=== PATIENT | female | born 1970 | race Caucasian/White ===

== ENCOUNTER 2018-12-01 09:44 | Day surgery (SDC) | payer OTHER ==
[2018-12-01] VITALS (8 sets, daily range): BP systolic 121–142; BP diastolic 75–87
[~2018-12-01] VITALS: Ht 165.1 cm; Wt 71.2 kg
[2018-12-01] MEDS ORDERED: LR 1000ml 1,000 ML IVLG SCH (10:19)
--- NOTE | 2018-12-01 10:21 | Anethesia Preoperative Eval ---
Anesthesia Pre-op PMH/ROS General Date of Evaluation: December 01, 2018 Time of Evaluation: 10:21 Anesthesiologist: comfort ASA Score: ASA 3 Mallampati Score Class I : Soft palate, uvula, fauces, pillars visible Class II: Soft palate, uvula, fauces visible Class III: Soft palate, base of uvula visible Class IV: Only hard plate visible Mallampati Classification: Class II Surgeon: jackson Diagnosis: gerd Surgical Procedure: egd Anesthesia History: none Social History: alcohol use Family History: no anesthesia problems Allergies: Coded Allergies: MORPHINE (Verified Allergy, Severe, NAUSEA, VOMITING, MIGRAINES, 12/01/18) Medications: see eMAR Patient NPO?: Yes Past Medical History Gastrointestinal/Genitourinary: Reports: GERD Neurologic/Psychiatric: Reports: depression/anxiety PSxH Narrative: hysterectomy, cholecystectomy Anesthesia Pre-op Phys. Exam Physician Exam Last Vital Signs Date Time Temp Pulse Resp B/P (MAP) Pulse Ox O2 Delivery O2 Flow Rate FiO2 12/01/18 10:24 Room Air 12/01/18 10:23 97.6 72 18 121/87 98 Constitutional: NAD Neurologic: CN 2-12 intact Cardiovascular: RRR Respiratory: CTA Gastrointestinal: S/NT/ND Airway Exam Mallampati Score: Class II MO: limited Neck: short TMD: 2fb ROM: limited Teeth: intact Anesthesia Pre-op A/P Risk Assessment & Plan Assessment: asa3 Plan: mac Status Change Before Surgery: No Pre-Antibiotics Drug: Mariah Child MD December 01, 2018 10:21
[2018-12-01] MEDS ORDERED: fentaNYL 100 mcg/2 mL IV PRN (10:30)
[2018-12-01] MEDS ORDERED: Atropine Inj 1mg/10ml Syr IV PRN (10:30)
[2018-12-01] MEDS ORDERED: Ketorolac 30mg Inj IV PRN (10:30)
[2018-12-01] MEDS ORDERED: Midazolam 2mg/2ml Inj IVP PRN (10:30)
[2018-12-01] MEDS ORDERED: DiphenhydrAMINE 50mg/ml Inj IVP PRN (10:30)
[2018-12-01] MEDS ORDERED: HYSINGLA ER20 MG PO (10:35)
[2018-12-01] MEDS ORDERED: CLARITIN10 M2 ORAL (10:35)
[2018-12-01] MEDS ORDERED: CYMBALTA60 MG ORAL (10:35)
[2018-12-01] MEDS ORDERED: ABILIFY30 MG ORAL (10:35)
[2018-12-01] MEDS ORDERED: BUPROPION XL450 MG PO (10:35)
[2018-12-01] MEDS ORDERED: ROBAXIN500 MG PO (10:35)
[2018-12-01] MEDS ORDERED: PEPCID AC20 M2 PO (10:35)
--- NOTE | 2018-12-01 11:55 | Short Stay Surgery H&P ---
History of Present Illness History of Present Illness Chief Complaint Abdominal pains/GERDs/Dysphagia HPI Ariadna Hope is a 48 year old female who was admitted on for GERDS/dysphagia/ abdominal mani Patient History Allergies: Coded Allergies: MORPHINE (Verified Allergy, Severe, NAUSEA, VOMITING, MIGRAINES, 12/01/18) PAST MEDICAL HISTORY: (1) Hypertension (2) History of cholecystectomy (3) H/O abdominal hysterectomy (4) Hx of bariatric surgery Medication History Scheduled Aripiprazole* (Abilify*), Unknown Dose ORAL DAILY, (Reported) Bupropion HCl (Bupropion Xl), 450 MG PO DAILY, (Reported) Duloxetine Hcl* (Cymbalta*), 60 MG ORAL DAILY, (Reported) Famotidine (Pepcid Ac), 20 MG PO BID, (Reported) Hydrocodone Bitartrate (Hysingla ER), Unknown Dose PO DAILY, (Reported) Loratadine (Claritin), 10 MG ORAL DAILY, (Reported) Methocarbamol* (Robaxin*), 500 MG PO BID, (Reported) Review of Systems Cardiovascular: Reports: hypertension Respiratory: Reports: no symptoms Skeletal: Reports: trauma Gastrointestinal: Reports: gastro esophageal reflux disease Genitourinary: Reports: no symptoms Neurologic: Reports: no symptoms Endocrine: Reports: no symptoms Hematologic: Reports: no symptoms Physical Exam Vital Signs Last Vital Signs Date Time Temp Pulse Resp B/P (MAP) Pulse Ox O2 Delivery O2 Flow Rate FiO2 12/01/18 10:24 Room Air 12/01/18 10:23 97.6 72 18 121/87 98 Skin: normal HENT: normal Heart: normal Lungs: normal Abdomen: abnormal Extremities: normal Genitourinary: normal Plan Plan of Care Upper GI. Endoscopy with biopsy Preop Interventions Nne. Summary of Findings See the reports Attestation Are the patient's medical conditions optimized for surgery? Attestation Response: yes Jose L Garduno MD December 01, 2018 11:55
--- NOTE | 2018-12-01 11:56 | Pre-Procedure Note/Attestation ---
Pre-Procedure Note/Attestation Complete Prior to Procedure Planned Procedure: left Procedure Narrative: Examination of the upper GI. tract via endoscopy Indications for Procedure Pre-Operative Diagnosis: R/O esophagitis/Gastritis/Peptic ulcers Attestation I attest that I discussed the nature of the procedure; its benefits; risks and complications; and alternatives (and the risks and benefits of such alternatives ), prior to the procedure, with the patient (or the patient's legal district sales representative). I attest that, if there was a reasonable possibility of needing a blood transfusion, the patient (or the patient's legal district sales representative) was given the [place] [employer] standardized written summary, pursuant to the Joe Arjun Blood Safety Act ([place] Health and Safety Code # 1645, as amended). I attest that I re-evaluated the patient just prior to the surgery and that there has been no change in the patient's H&P, except as documented below: Jose L Garduno MD December 01, 2018 11:56
[2018-12-01] MEDS ORDERED: LR 1000ml ONE (12:00)
[2018-12-01] MEDS ORDERED: Lidocaine 1% MPF 10mg/ml 5ml ONE (12:00)
[2018-12-01] MEDS ORDERED: Propofol 200mg/20ml IV ONE (12:00)
--- NOTE | 2018-12-01 12:31 | Endoscopy Procedure Note ---
Endoscopy Procedure Note General Indication for Procedure: Abdominal/epigastric pains/GERds/dysphagia Procedures Performed: EGD - Modrate size Hiatal Hernia with mild gastritis noted. biopsies taken from gastric body and antral area. Specimen: yes Pt Tolerated Procedure Well: Yes Anesthesia Anesthesiologist: Dr. Moreno Anesthesia: moderate sedation Medications Medication Given: see anesthesia record Inserted Devices Implant(s) used?: No Quality Quality of Bowel Preparation: Excellent Was there any complications?: No GI Core Measures 50 yrs or older w/o bx or poly: Not Applicable 10yrs. F/U recommended: Not Applicable If not recommended, why?: Med reason:<3 yrs.: System Reason:<3 yrs.: Jose L Garduno MD December 01, 2018 12:31
--- NOTE | 2018-12-01 12:32 | Discharge Instructions ---
Discharge Instructions Discharge Instructions Follow up with: Visit the docotor in office after 2 weeks For Congestive Heart Failure Reminder Report to your physician any weight gain of 5 pounds or more in one week. Jose L Garduno MD December 01, 2018 12:32
--- NOTE | 2018-12-01 13:07 | Immediate Post-Op Evaluation ---
Immediate Post-Op Evalulation Immediate Post-Op Evalulation Procedure: egd w/bx Date of Evaluation: December 01, 2018 Time of Evaluation: 12:54 IV Fluids: 150ml lr Blood Products: none Estimated Blood Loss: negligible Blood Pressure Systolic: 142 Blood Pressure Diastolic: 82 Pulse Rate: 76 Respiratory Rate: 18 O2 Sat by Pulse Oximetry: 100 Temperature (Fahrenheit): 97.5 Pain Score (1-10): 0 Nausea: No Vomiting: No Complications none Patient Status: awake, reacts, patent Hydration Status: adequate Drug: Mariah Child MD December 01, 2018 13:07
--- NOTE | 2018-12-01 13:10 | 48 Hour Post Anesthesia Eval ---
Post Anesthesia Evaluation Procedure: egd w/bx Date of Evaluation: December 01, 2018 Time of Evaluation: 12:56 Blood Pressure Systolic: 128 0: 79 Pulse Rate: 73 Respiratory Rate: 18 Temperature (Fahrenheit): 97.5 O2 Sat by Pulse Oximetry: 100 Airway: patent Nausea: No Vomiting: No Pain Intensity: 0 Hydration Status: adequate Cardiopulmonary Status: stable Mental Status/LOC: patient returned to baseline Post-Anesthesia Complications: none Follow-up care needed: N/A Mariah Moreno MD December 01, 2018 13:10
--- NOTE | 2018-12-01 19:15 | Operative Note - Dictated ---
DATE OF OPERATION: 12/01/2018 SURGEON: Jose L Garduno M.D. PROCEDURE: Esophagogastroduodenoscopy with biopsy. PREOPERATIVE DIAGNOSIS: Dysphagia, abdominal pain, heartburn. POSTOPERATIVE DIAGNOSES: 1. Moderate-sized hiatal hernia. 2. Mild generalized gastritis with evidence of bile in the stomach. Biopsy was taken from the pre-pyloric area and gastric body. MEDICATION USED: Per Dr. Castillo, anesthesiologist. INSTRUMENT: GIF Olympus upper GI video endoscope. DESCRIPTION OF PROCEDURE: The patient after arriving in the endoscopy unit, was told about risks and benefits of the procedure that she accepted and signed informed consent. At this time, she was put on the left lateral decubitus position. After adequate IV sedation, the scope was gently passed through the cricopharyngeal area, was lodged into the upper esophagus and gradually advanced towards gastroesophageal junction. The entire length of esophagus looked normal. There was no evidence of varices, inflammatory process, ulceration, stricture, etc. At this time, the scope reached to the GE junction, which revealed no evidence of Wells's. However, there was moderate-sized hiatal hernia at this time noted. Scope was then guided into the stomach. Gastric cavity was distended with insufflation of air. There revealed to be mild to moderate amount of green bile in the stomach. However, the underlying gastric mucosa was also consistent with mild generalized gastritis, but no ulcers or tumors or polyps or bleeding site was noted. At this time, one random biopsy from gastric body and the other one from the antrum was obtained, and subsequently scope was passed through the pylorus. First and second portion of duodenum were found to be completely normal. At this point, the scope was pulled out and the procedure was terminated. The patient tolerated the procedure well and left the endoscopy room in a good condition. Jose L Garduno M.D. DR: CHAYA JOB#: [id number] CC:
--- NOTE | 2018-12-01 19:30 | Pre-op HX & Phy Repo 2 SIG ---
DATE OF ADMISSION: 12/01/2018 HISTORY OF PRESENT ILLNESS: The patient is a 48-year-old female who is being seen prior to undergoing the procedure of upper GI endoscopy for which she has been scheduled to receive for evaluation of her abdominal symptoms that she has suffered subsequent to her work injury. This examination is being done to basically clear the patient to receive anesthesia. The patient reports to me that she still is experiencing pain over the upper part of the abdomen particularly epigastric area, which is quite cumbersome. It usually happens after eating food. She does have moderate amount of heartburn as well. She reports basically this pain comes back after eating meals and lasts a few hours sometimes. 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 She reports to me that she does have occasional difficulty swallowing for solids and liquids, but does not have any vomiting or nausea. There has been no history of hematemesis, melena, hematochezia, rectal bleeding, etc. She also reported that subsequent to her work injury, she gained approximately 60 pounds and subsequently she had to undergo bariatric surgery as I mentioned in my initial report in the past as well. The patient has been treated with number of medications including strong analgesics and nonsteroidal anti-inflammatory agents after her work injury. She reports that she is still taking them because of the pain that she has suffering from different parts of the body that she has been injured at job site. She denied having any major gastrointestinal conditions before being injured at job site. As I mentioned, she was a respiratory therapist working with the patient and the time when she was injured, she was trying to help a patient to be pulled from the gurney to the bed and at this time, she had injury over her lower back, which was quite significant and subsequently she was seen by different physicians and received multiple treatments, but no surgery was done. PAST MEDICAL HISTORY: The patient has had history of hypertension, but no diabetes or arthritis. SURGICAL HISTORY: The patient has had history of hysterectomy, bariatric surgery, cholecystectomy. ALLERGIES: To morphine. CHILDHOOD DISEASES: As usual. FAMILY HISTORY: Nonsignificant. SOCIAL HISTORY: She denies drinking alcohol or smoking cigarettes. REVIEW OF SYSTEMS: Basically history of present illness and the patient currently is complaining of headache today, which seems to be consistent with migraine headache and she is taking some medications in that regard. She is also complaining of still experiencing pain over the epigastric area as I mentioned before. She also does have pain over her shoulders. PHYSICAL EXAMINATION: GENERAL: Reveals alert, well-oriented female, does not seem to be in acute distress. She answers the questions quite properly. VITAL SIGNS: Blood pressure 121/87, temperature 97, respiratory rate 18, O2 saturation 99%, and pulse rate is 72 per minute. HEENT: Normocephalic. Pupils equal in size and reactive to light and accommodation. No conjunctival jaundice. NECK: Supple. No JVD or thyromegaly. CHEST: Clear to auscultation and percussion. No rales or rhonchi. HEART: S1, S2 normal. Regular rhythm. No gallops or murmur. ABDOMEN: Soft, but mildly tender over the epigastric area. No organomegaly. No masses noted. EXTREMITIES: Unremarkable. SKIN AND LYMPHATICS: Nonsignificant. NEUROLOGIC: Nonsignificant. INITIAL PREOPERATIVE IMPRESSION: 1. Epigastric pain of uncertain etiology, rule out NSAID-induced gastropathy, rule out peptic ulcer disease, gastritis. 2. History of dysphagia, possibly secondary to gastroesophageal reflux and spasm versus NSAID-induced esophagitis. 3. Anxiety and depression and hypertension. RECOMMENDATION: The applicant seems to be quite stable at this time to undergo the procedure of upper GI endoscopy receiving anesthesia. She understands the risks and benefits and will sign the consent. Said Meghann Garduno DR: MALCOLM JOB#: [id number] CC:
== END 2018-12-01 13:45 | disposition home or self-care (01) ==
LOC: GAS 09:44
DX: R13.10 Dysphagia, unspecified (principal); K44.9 Diaphragmatic hernia without obstruction or gangrene; K29.50 Unspecified chronic gastritis without bleeding; I10 Essential (primary) hypertension; Z90.49 Acquired absence of other specified parts of digestive tract; Z98.84 Bariatric surgery status; Z79.899 Other long term (current) drug therapy; Z88.6 Allergy status to analgesic agent
CPT/HCPCS: 43239; J2704; 94003; 94150